=== PATIENT | female | born 1975 | race Caucasian/White ===

== ENCOUNTER 2017-09-19 06:12 | Emergency (ER) | payer OTHER ==
[~2017-09-19] VITALS: Ht 157.5 cm; Wt 66.7 kg
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
[2017-09-19] MEDS ORDERED: HYDROCODONE/APAP 10/325MG 1 EA TABLET ONE (06:38)
[2017-09-19] MEDS ORDERED: LIDOCAINE /MPF 1% VIAL 5 ML VIAL ONE (06:38)
[2017-09-19] MEDS ORDERED: CEFTRIAXONE 1 G VIAL ONE (06:38)
[2017-09-19] MEDS ORDERED: IBUPROFEN 600 MG TABLET PO ONE (06:39)
[2017-09-19] MEDS: IBUPROFEN 600 MG TABLET PO ONE (06:46)
[2017-09-19] MEDS: HYDROCODONE/APAP 10/325MG 1 EA TABLET PO ONE (06:46)
[2017-09-19] MEDS: CEFTRIAXONE 1 G VIAL IM ONE (06:47)
[2017-09-19 06:48] VITALS: BP 124/84
== END 2017-09-19 07:08 | disposition home or self-care (01) ==
LOC: ER 06:14
DX: L03.116 Cellulitis of left lower limb (principal); G89.29 Other chronic pain; Z60.2 Problems related to living alone
CPT/HCPCS: 73630-TC; A4606; J0696; J3490; Z7610

== ENCOUNTER 2018-02-20 22:12 | Emergency (ER) | payer OTHER ==
[~2018-02-20] VITALS: Ht 165.1 cm; Wt 67.1 kg
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
--- NOTE | 2018-02-20 23:21 | NUR ---
PT BACK FROM RADIOLOGY. PENDING CT RESULTS.
[2018-02-20] MEDS ORDERED: HYDROCODONE/APAP 10/325MG 1 EA TABLET ONE (23:55)
[2018-02-21] MEDS ORDERED: ONDANSETRON 4 MG TAB.RAPDIS ONE
[2018-02-21] MEDS ORDERED: HYDROCODONE/APAP 10/325MG 1 EA TABLET PO ONE
--- NOTE | 2018-02-21 00:10 | NUR ---
Patient discharged to home in stable condition. Written and verbal after care instructions given. Patient verbalizes understanding of instruction. ambulatory with a steady gait
[2018-02-21 00:11] VITALS: BP 132/63
== END 2018-02-21 00:12 | disposition home or self-care (01) ==
LOC: ER 22:13
DX: S00.03XA Contusion of scalp, initial encounter (principal); S09.8XXA Other specified injuries of head, initial encounter; G89.29 Other chronic pain; M54.9 Dorsalgia, unspecified; Z98.890 Other specified postprocedural states; Z85.841 Personal history of malignant neoplasm of brain; Z60.2 Problems related to living alone; Y04.8XXA Assault by other bodily force, initial encounter; Y93.89 Activity, other specified; Y92.89 Other specified places as the place of occurrence of the external cause; Y99.8 Other external cause status
CPT/HCPCS: 70450; 70486; 99284; A4606; Q0162; Z7610

== ENCOUNTER 2018-06-05 22:58 | Emergency (ER) | payer OTHER ==
[~2018-06-05] VITALS: Ht 157.5 cm; Wt 66.7 kg
[2018-06-05 23:08] VITALS: BP 123/85
[2018-06-05] MEDS ORDERED: GUAIFENESIN/D-METHORPHAN HB 5 ML UDC ONE (23:29)
[2018-06-05] MEDS ORDERED: GUAIFENESIN/D-METHORPHAN HB 5 ML UDC PO ONE (23:30)
== END 2018-06-06 00:04 | disposition home or self-care (01) ==
LOC: ER 22:59
DX: J06.9 Acute upper respiratory infection, unspecified (principal); G89.29 Other chronic pain; Z98.890 Other specified postprocedural states; Z60.2 Problems related to living alone
CPT/HCPCS: 87070; 87804 ×2; 87880; 99283; A4606; Z7610; 86403-TC; 87400